=== PATIENT | male | born 1965 | race Caucasian/White ===

== ENCOUNTER 2023-02-27 09:30 | Day surgery (SDC) | payer BC ==
[~2023-02-27 09:30] MED LIST: Lactated Ringers 1,000 ML IV SCH
[2023-02-27] MEDS ORDERED: Propofol 200 MG/20 ML SDV ONE ×5 (10:32→12:26)
[2023-02-27] MEDS ORDERED: Lidocaine 2% 5 ML SDV ONE (10:32)
[2023-02-27] MEDS ORDERED: fentaNYL 100 MCG/2 ML SDV ONE (10:33)
== END 2023-02-27 13:12 | disposition home or self-care (01) ==
LOC: MW.SDS 09:30
PROVIDERS: ATTEND Surgery
DX: Z12.11 Encounter for screening for malignant neoplasm of colon (principal); D12.6 Benign neoplasm of colon, unspecified; K21.9 Gastro-esophageal reflux disease without esophagitis; K29.50 Unspecified chronic gastritis without bleeding; K22.89 Other specified disease of esophagus; K57.30 Diverticulosis of large intestine without perforation or abscess without bleeding; M1A.9XX0 Chronic gout, unspecified, without tophus (tophi); I10 Essential (primary) hypertension; E78.00 Pure hypercholesterolemia, unspecified; E11.9 Type 2 diabetes mellitus without complications; Z79.899 Other long term (current) drug therapy; Z87.891 Personal history of nicotine dependence
CPT/HCPCS: 43239; 45381; 45385; J2704; J3010; J7120; J3490